=== PATIENT | male | born 1965 | race Caucasian/White ===

== ENCOUNTER → 2017-12-14 | Day surgery (SDC) | payer BC ==
[~2017-12-14] MED LIST: ALLEGRA; ASTELIN137 MCG; CEFAZOLIN SOD 1 GM VIAL ONE; DEXAMETHASONE SOD PHOS INJ 4 MG/ML VIAL ONE; EPHEDRINE SULFATE INJ 50 MG/10 ML SYR ONE; EPINEPHRINE HCL INJ 1 MG/ML AMP ONE; FENTANYL CITRATE/PF 100MCG/2 ML INJ ONE; GLYCOPYRROLATE INJ 1MG/ 5 ML SYR ONE; HYDROMORPHONE 1MG/1ML INJ ONE; KETOROLAC TROMETHAMINE 30 MG/ML VIAL ONE; LIDOCAINE 2% /EPINEPHRINE 20 ML SDV INJ ONE; LIDOCAINE HCL 2% LOCAL 20 ML VIAL ONE; LIDOCAINE HCL 2% LOCAL INJ 5 ML SDV VIAL INJ ONE; MIDAZOLAM HCL 2 MG/2 ML VIAL ONE; NASONEX17 GM; NEOSTIGMINE 5 MG/5ML SYR ONE; ONDANSETRON HCL INJ 2 MG/ML VIAL ONE; PHENYLEPHRINE HCL 1% 10 MG/ML VIAL ONE; PROPOFOL IV EMULSION 10 MG/ML 20 ML VIAL ONE; ROCURONIUM BROMIDE 10 MG/ML 5ML VIAL ONE; ROPIVACAINE 0.5% 5 MG/ML 30 ML SDV ONE; SEVOFLURANE INHAL SOLN 250 ML PEN BTL ONE; SYMBICORT 16010.2 GM INH; TESTOSTERONE5 GM SC; ZOLPIDEM TARTRA10 MG
--- NOTE | 2017-12-14 10:44 | Operative Report ---
DATE OF PROCEDURE: December 14, 2017 FORMING PROCESS LINE WORKER: Tremayne Randall PA-C The patient was brought to the operating room for induction of anesthesia. Throughout this case, my PA's assistance was necessary for retraction of soft tissue and positioning of the extremity. This allows for efficient and technically successful execution of the operation and is considered medically necessary. PREOPERATIVE DIAGNOSIS: Left shoulder rotator cuff tear. POSTOPERATIVE DIAGNOSIS: Left shoulder rotator cuff tear. PROCEDURES 1. Left shoulder arthroscopy. 2. Subacromial decompression. 3. Rotator cuff repair. INDICATIONS: The patient is a 52-year-old gentleman who has a traumatic tear of his left shoulder rotator cuff. He has failed conservative management and would like to have this surgically repaired. He has been through this on the right side. He states he understands the plan of care and wishes to proceed. DESCRIPTION OF PROCEDURE: The patient was brought to the operating room and placed under general anesthetic. He received prophylactic antibiotics and a regional block in the holding area. He was positioned in the beach chair position on the shoulder table. His left upper extremity was prepped and draped in a sterile manner. He was noted have full range of motion during prepping. A preoperative time out was performed. A standard posterior arthroscopy portal was established. The shoulder was insufflated and systematically inspected. Immediately evident was a full-thickness tear of the supraspinatus and infraspinatus. The glenohumeral surface had some minor grade 1 changes of chondromalacia. There were no unstable margins. The labrum and the biceps anchor at the supraglenoid tubercle were intact and stable. A lateral working portal was established and the shoulder could be probed through the rotator cuff tear. The biceps tendon had some very minor fraying, but otherwise was intact. A shaver was introduced into the shoulder joint. The biceps was gently debrided. This represented less than 5% of the thickness of the tendon. There was no need for biceps tenodesis. The scope was then placed into the subacromial space. A subacromial bursectomy and bone decompression was performed. The greater tuberosity was then gently decorticated. An [employer] speed bridge double row construct was then used to repair the tendon down to bleeding cancellous bone. Two medial suture anchors were placed preloaded with fiber tape stitches. These were passed in a diverging fashion through healthy portions of the rotator cuff. The rotator cuff had been debrided back to more healthy tissue using the electric blade shaver. Superolateral secondary suture anchors were then placed. The sutures were tensioned before advancing the bioabsorbable suture anchors. The repair was probed. Excellent apposition of the tendon to the bone was accomplished. The arthroscopic instruments were then removed. The portal incisions were closed with interrupted nylon stitches. An anterior shuttle portal had also been created. A sterile bandage and an ultra sling were applied. There was no blood loss. All needle and sponge counts were correct. Job#: [id number]
== END | disposition home or self-care (01) ==
LOC: OR 08:18
PROVIDERS: ATTEND Specialist
DX: S46.022A Laceration of muscle(s) and tendon(s) of the rotator cuff of left shoulder, initial encounter (principal); M94.212 Chondromalacia, left shoulder; G47.33 Obstructive sleep apnea (adult) (pediatric); X58.XXXA Exposure to other specified factors, initial encounter; Y93.89 Activity, other specified; Y99.8 Other external cause status; Z01.810 Encounter for preprocedural cardiovascular examination
CPT/HCPCS: 29827; 93005; C1713 ×3; J0171; J0690; J1100; J1170; J1885; J2001 ×3; J2250; J2370; J2405; J2795

== ENCOUNTER 2018-02-17 08:00 | Outpatient (RCR) | payer BC ==
[~2018-02-17 08:00] MED LIST changes: -CEFAZOLIN SOD 1 GM VIAL ONE; -DEXAMETHASONE SOD PHOS INJ 4 MG/ML VIAL ONE; -EPHEDRINE SULFATE INJ 50 MG/10 ML SYR ONE; -EPINEPHRINE HCL INJ 1 MG/ML AMP ONE; -FENTANYL CITRATE/PF 100MCG/2 ML INJ ONE; -GLYCOPYRROLATE INJ 1MG/ 5 ML SYR ONE; -HYDROMORPHONE 1MG/1ML INJ ONE; -KETOROLAC TROMETHAMINE 30 MG/ML VIAL ONE; -LIDOCAINE 2% /EPINEPHRINE 20 ML SDV INJ ONE; -LIDOCAINE HCL 2% LOCAL 20 ML VIAL ONE; -LIDOCAINE HCL 2% LOCAL INJ 5 ML SDV VIAL INJ ONE; -MIDAZOLAM HCL 2 MG/2 ML VIAL ONE; -NEOSTIGMINE 5 MG/5ML SYR ONE; -ONDANSETRON HCL INJ 2 MG/ML VIAL ONE; -PHENYLEPHRINE HCL 1% 10 MG/ML VIAL ONE; -PROPOFOL IV EMULSION 10 MG/ML 20 ML VIAL ONE; -ROCURONIUM BROMIDE 10 MG/ML 5ML VIAL ONE; -ROPIVACAINE 0.5% 5 MG/ML 30 ML SDV ONE; -SEVOFLURANE INHAL SOLN 250 ML PEN BTL ONE
== END 2018-02-18 ==
LOC: PT 08:00
PROVIDERS: ATTEND Specialist
DX: S46.022D Laceration of muscle(s) and tendon(s) of the rotator cuff of left shoulder, subsequent encounter (principal); Z47.89 Encounter for other orthopedic aftercare; M25.512 Pain in left shoulder; M25.612 Stiffness of left shoulder, not elsewhere classified; M62.81 Muscle weakness (generalized)

== ENCOUNTER 2018-03-17 09:00 | Outpatient (RCR) | payer BC | END 2018-03-20 | LOC: PT 09:00 | PROVIDERS: ATTEND Specialist | DX: S46.022D Laceration of muscle(s) and tendon(s) of the rotator cuff of left shoulder, subsequent encounter (principal); Z47.89 Encounter for other orthopedic aftercare; M25.512 Pain in left shoulder; M25.612 Stiffness of left shoulder, not elsewhere classified; M62.81 Muscle weakness (generalized) ==

== ENCOUNTER 2018-04-19 07:00 | Outpatient (RCR) | payer BC | END 2018-04-20 | LOC: PT 07:00 | PROVIDERS: ATTEND Specialist | DX: S46.022D Laceration of muscle(s) and tendon(s) of the rotator cuff of left shoulder, subsequent encounter (principal); Z47.89 Encounter for other orthopedic aftercare; M25.512 Pain in left shoulder; M25.612 Stiffness of left shoulder, not elsewhere classified; M62.81 Muscle weakness (generalized) | CPT/HCPCS: 97139 ==

== ENCOUNTER 2018-05-14 09:00 | Outpatient (RCR) | payer BC | END 2018-05-21 | LOC: PT 09:00 | PROVIDERS: ATTEND Specialist | DX: S46.022D Laceration of muscle(s) and tendon(s) of the rotator cuff of left shoulder, subsequent encounter (principal); Z47.89 Encounter for other orthopedic aftercare; M25.512 Pain in left shoulder; M25.612 Stiffness of left shoulder, not elsewhere classified; M62.81 Muscle weakness (generalized) ==